=== PATIENT | male | born 1945 | race Caucasian/White ===

== ENCOUNTER 2018-12-24 13:15 | Emergency (ER) | payer OTHER ==
--- OUTSIDE RECORDS SUMMARY | 2018-12-24 13:17 | XMS REPORT ---
:1945 Author Organization eClinicalWorks Care Team Providers Name Role Phone Mosley, Na Provider Role Unavailable Allergies, Adverse Reactions, Alerts Substance Reaction Event Type N.K.D.A. Info Not Available Non Drug Allergy Problems Problem Type Condition Code Onset Dates Condition Status Assessment Allergic rhinitis J30.9 Active Assessment HTN (hypertension) I10 Active Problem Cervical radiculopathy M54.12 Active Problem BMI 33.0-33.9,adult Z68.33 Active Problem Lipid screening Z13.220 Active Problem HTN (hypertension) I10 Active Problem Allergic rhinitis J30.9 Active Problem Osteoarthritis of right knee, M17.11 Active unspecified osteoarthritis type Problem Obesity E66.9 Active Assessment Lipid screening Z13.220 Active Assessment Asymptomatic hypertensive urgency I16.0 Active Assessment Osteoarthritis of right knee, M17.11 Active unspecified osteoarthritis type Assessment BMI 33.0-33.9,adult Z68.33 Active Assessment Cervical radiculopathy M54.12 Active Medications Medication Code Code Instructions Start End Status Dosage System Date Date Celebrex [facility] 45717252934 100 MG Orally Dec 03, Mar 03, Active 1 capsule twice a day 2017 2017 with food Zyrtec Allergy ND 70755579439 10 MG Orally Active 1 tablet Once a day Metoprolol ND 65356432384 25 MG Orally Active 1 tablet Tartrate Twice a day with food Debrox [facility] 50755558093 6.5 % Otic Twice Active 5 drops a day into affected ear Amlodipine ND 01084630091 10 MG Orally Dec 03, Active 1 tablet Besylate Once a day 2017 Flonase ND 02743652237 50 MCG/ACT Active 2 spray in Nasally Once a each day nostril Losartan ND 84190406885 100-12.5 Active TAKE ONE Potassium-HCTZ TABLET BY MOUTH ONCE DAILY Results No Known Results Summary Purpose eClinicalWorks Submission
--- OUTSIDE RECORDS SUMMARY | 2018-12-24 13:17 | XMS REPORT ---
:1945 Author Organization e[employer]Works Care Team Providers Name Role Phone Nettie Mosley Provider Role Unavailable Allergies, Adverse Reactions, Alerts Substance Reaction Event Type N.K.D.A. Info Not Available Non Drug Allergy Problems Problem Type Condition Code Onset Dates Condition Status Problem Obesity E66.9 Active Problem HTN (hypertension) I10 Active Problem Allergic rhinitis J30.9 Active Assessment Allergic rhinitis J30.9 Active Assessment HTN (hypertension) I10 Active Medications Medication Code System Code Instructions Start Date End Date Status Dosage Debrox NDC 0 Active not defined Results No Known Results Summary Purpose eClinicalWorks Submission
--- NOTE | 2018-12-24 15:01 | ER ---
Nurse's Notes [facility] Name: Bladimir Michelle Age: 73 yrs Sex: Male : 1945 Arrival Date: 12/24/2018 Time: 13:20 Bed 16 Private MD: Diagnosis: Hypertensive heart qzthzso-[id number]-coyidydmn and poorly controlled Presentation: 12/24 13:23 Presenting complaint: Patient states: "I woke up this morning and noticed my legs felt ss a little swollen. My blood pressure has been high and I've been out of my medication for a couple weeks." Patient reports that he took one of his 's blood pressure medications yesterday and today to see if it would help. Transition of care: patient was not received from another setting of care. Onset of symptoms is unknown. Risk Assessment: Do you want to hurt yourself or someone else? Patient reports no desire to harm self or others. Initial Sepsis Screen: Does the patient meet any 2 criteria? No. Patient's initial sepsis screen is negative. Does the patient have a suspected source of infection? No. Patient's initial sepsis screen is negative. Care prior to arrival: None. 13:23 Method Of Arrival: Ambulatory ss 13:23 Acuity: MENDOZA 3 ss Historical: - Allergies: 13:26 No Known Allergies; ss - Home Meds: 13:26 None [Active]; ss - PMHx: 13:26 Hypertension; ss - PSHx: 13:26 Hernia repair; ss - Immunization history:: Adult Immunizations unknown. - Social history:: Smoking status: Patient/guardian denies using tobacco. - Ebola Screening: : Patient denies exposure to infectious person Patient denies travel to an Ebola-affected area in the 21 days before illness onset. Screenin:00 Abuse screen: Denies threats or abuse. Denies injuries from another. Nutritional ph screening: No deficits noted. Tuberculosis screening: No symptoms or risk factors identified. Fall Risk None identified. Assessment: 14:00 General: Appears in no apparent distress. comfortable, well groomed, Behavior is calm, ph cooperative, appropriate for age. Pain: Denies pain. Neuro: Level of Consciousness is awake, alert, obeys commands, Oriented to person, place, time, situation, Denies blurred vision dizziness, headache. Cardiovascular: Denies chest pain, lightheadedness, shortness of breath, Capillary refill < 3 seconds in bilateral fingers Patient's skin is warm and dry. Respiratory: Airway is patent Respiratory effort is even, unlabored. GI: No signs and/or symptoms were reported involving the gastrointestinal system. Derm: Skin is intact, is healthy with good turgor, Skin is pink, warm \\T\\ dry. Musculoskeletal: Circulation, motion, and sensation intact. Range of motion: intact in all extremities. 15:30 Reassessment: Patient appears in no apparent distress at this time. Patient and/or ph family updated on plan of care and expected duration. Pain level reassessed. Patient is alert, oriented x 3, equal unlabored respirations, skin warm/dry/pink. awaiting BP medication from pharmacy before d/c. Vital Signs: 13:26 BP 175 / 94; Pulse 76; Resp 19; Temp 97.0(TE); Pulse Ox 95% on R/A; Weight 122.47 kg; ss Height 6 ft. 1 in. (185.42 cm); Pain 0/10; 14:33 BP 156 / 82; Pulse 60; Resp 18; Pulse Ox 95% on R/A; ph 13:26 Body Mass Index 35.62 (122.47 kg, 185.42 cm) ss ED Course: 13:20 Patient arrived in ED. as 13:25 Triage completed. ss 13:26 Arm band placed on right wrist. ss 13:28 Monica Spears, RN is Primary Nurse. ph 13:38 William Jay MD is Attending Physician. kdr 14:59 Nettie Mosley MD is Referral Physician. kdr 15:00 Patient has correct armband on for positive identification. Bed in low position. Call ph light in reach. Pulse ox on. NIBP on. Door closed. Noise minimized. 16:00 No provider procedures requiring assistance completed. Patient did not have IV access ph during this emergency room visit. Administered Medications: 15:56 Drug: Losartan 50 mg Route: PO; ph 16:05 Follow up: Response: No adverse reaction; Medication administered at discharge. ph Outcome: 15:00 Discharge ordered by . kdr 16:07 Patient left the ED. ph 16:07 Discharged to home ambulatory. ph 16:07 Condition: good 16:07 Discharge instructions given to patient, Instructed on discharge instructions, follow up and referral plans. Demonstrated understanding of instructions, follow-up care. Signatures: William Jay MD MD kdr Martinez, Amelia as Smirch, Shelby, RN RN ss Monica Spears RN RN ph
--- NOTE | 2018-12-24 15:01 | EDPHYS ---
Physician Documentation [facility] Name: Bladimir Michelle Age: 73 yrs Sex: Male : 1945 Arrival Date: 12/24/2018 Time: 13:20 Bed 16 Private MD: ED Physician William Jay HPI: 12/24 18:53 This 73 yrs old Male presents to ER via Ambulatory with complaints of Blood kdr Pressure Problem. 18:53 The patient has been out of his HTN meds for a number of weeks. Onset: The kdr symptoms/episode began/occurred gradually. Severity of symptoms: At their worst the symptoms were mild in the emergency department the symptoms are unchanged. The patient has not recently seen a physician, Has been unable to see his doctor recently to get his meds refilled. Historical: - Allergies: 13:26 No Known Allergies; ss - Home Meds: 13:26 None [Active]; ss - PMHx: 13:26 Hypertension; ss - PSHx: 13:26 Hernia repair; ss - Immunization history:: Adult Immunizations unknown. - Social history:: Smoking status: Patient/guardian denies using tobacco. - Ebola Screening: : Patient denies exposure to infectious person Patient denies travel to an Ebola-affected area in the 21 days before illness onset. ROS: 18:53 Constitutional: Negative for fever, chills, and weight loss, Eyes: Negative for injury, kdr pain, redness, and discharge, ENT: Negative for injury, pain, and discharge, Neck: Negative for injury, pain, and swelling, Cardiovascular: Negative for chest pain, palpitations, and edema, Respiratory: Negative for shortness of breath, cough, wheezing, and pleuritic chest pain, Abdomen/GI: Negative for abdominal pain, nausea, vomiting, diarrhea, and constipation, Back: Negative for injury and pain, : Negative for injury, bleeding, discharge, and swelling, Skin: Negative for injury, rash, and discoloration, Neuro: Negative for headache, weakness, numbness, tingling, and seizure activity. Psych: Negative for depression, anxiety, suicide ideation, homicidal ideation, and hallucinations, Allergy/Immunology: Negative for hives, rash, and allergies, Endocrine: Negative for neck swelling, polydipsia, polyuria, polyphagia, and marked weight changes, Hematologic/Lymphatic: Negative for swollen nodes, abnormal bleeding, and unusual bruising. 18:53 MS/extremity: Positive for swelling, 2+ pedal edema in bilateral lower extremity. Exam: 18:53 Constitutional: This is a well developed, well nourished patient who is awake, alert, kdr and in no acute distress. Head/Face: Normocephalic, atraumatic. Eyes: Pupils equal round and reactive to light, extra-ocular motions intact. Lids and lashes normal. Conjunctiva and sclera are non-icteric and not injected. Cornea within normal limits. Periorbital areas with no swelling, redness, or edema. Neck: Trachea midline, no thyromegaly or masses palpated, and no cervical lymphadenopathy. Supple, full range of motion without nuchal rigidity, or vertebral point tenderness. No Meningismus. Chest/axilla: Normal chest wall appearance and motion. Nontender with no deformity. No lesions are appreciated. Cardiovascular: Regular rate and rhythm with a normal S1 and S2. No gallops, murmurs, or rubs. Normal PMI, no JVD. No pulse deficits. Respiratory: Lungs have equal breath sounds bilaterally, clear to auscultation and percussion. No rales, rhonchi or wheezes noted. No increased work of breathing, no retractions or nasal flaring. Abdomen/GI: Soft, non-tender, with normal bowel sounds. No distension or tympany. No guarding or rebound. No evidence of tenderness throughout. Back: No spinal tenderness. No costovertebral tenderness. Full range of motion. Skin: Warm, dry with normal turgor. Normal color with no rashes, no lesions, and no evidence of cellulitis. 2+ pitting edema bilaterally MS/ Extremity: Pulses equal, no cyanosis. Neurovascular intact. Full, normal range of motion. Neuro: Awake and alert, GCS 15, oriented to person, place, time, and situation. Cranial nerves II-XII grossly intact. Motor strength 5/5 in all extremities. Sensory grossly intact. Cerebellar exam normal. Normal gait. Psych: Awake, alert, with orientation to person, place and time. Behavior, mood, and affect are within normal limits. Vital Signs: 13:26 BP 175 / 94; Pulse 76; Resp 19; Temp 97.0(TE); Pulse Ox 95% on R/A; Weight 122.47 kg; ss Height 6 ft. 1 in. (185.42 cm); Pain 0/10; 14:33 BP 156 / 82; Pulse 60; Resp 18; Pulse Ox 95% on R/A; ph 13:26 Body Mass Index 35.62 (122.47 kg, 185.42 cm) MDM: 15:00 Patient medically screened. kdr 18:53 Data reviewed: vital signs, nurses notes, lab test result(s). Counseling: I had a kdr detailed discussion with the patient and/or guardian regarding: the historical points, exam findings, and any diagnostic results supporting the discharge/admit diagnosis, lab results, radiology results, the need for outpatient follow up. Physician consultation: Nettie Mosley MD regarding consult, patient's condition, need to evaluate the patient as soon as possible, outpatient follow-up, and will see patient in office, immediately. Administered Medications: 15:56 Drug: Losartan 50 mg Route: PO; ph 16:05 Follow up: Response: No adverse reaction; Medication administered at discharge. ph Disposition: 12/24/18 15:00 Discharged to Home. Impression: Hypertensive heart disease - non-compliant and poorly controlled. - Condition is Stable. - Discharge Instructions: Hypertension, [id number]. - Medication Reconciliation Form, Thank You Letter form. - Follow up: Nettie Mosley MD; When: Tomorrow; Reason: If symptoms return, Further diagnostic work-up, Recheck today's complaints, Continuance of care, Re-evaluation by your physician. - Problem is an ongoing problem. - Symptoms are unchanged. - Notes: Follow-up in Dr. Mosley's office tomorrow. They will re-fill your medications at that time Signatures: William Jay MD MD [facility] Brenda Delgado RN RN Monica Spears RN RN ph Corrections: (The following items were deleted from the chart) 16:07 15:00 12/24/2018 15:00 Discharged to Home. Impression: Hypertensive heart disease - ph non-compliant and poorly controlled. Condition is Stable. Forms are Medication Reconciliation Form, Thank You Letter, Antibiotic Education, Prescription Opioid Use. Follow up: Nettie Mosley; When: Tomorrow; Reason: If symptoms return, Further diagnostic work-up, Recheck today's complaints, Continuance of care, Re-evaluation by your physician. Problem is an ongoing problem. Symptoms are unchanged. kdr
[2018-12-24] MEDS ORDERED: LOSARTAN POTASSIUM 50 MG TABLET PO ONE (16:00)
[2018-12-24 16:40] VITALS: TEMP 97; O2SAT 95
[2018-12-24 16:41] VITALS: BP 156/82
== END 2018-12-24 16:07 | disposition home or self-care (01) ==
LOC: ER 13:15
DX: I11.9 Hypertensive heart disease without heart failure (principal); I10 Essential (primary) hypertension; Z91.19 Patient's noncompliance with other medical treatment and regimen
CPT/HCPCS: 99283

== ENCOUNTER 2019-01-06 15:12 | Emergency (ER) | payer OTHER ==
[2019-01-06] MEDS ORDERED: NA CHLORIDE 0.9% 250 ML ONE (15:47)
[2019-01-06] MEDS ORDERED: VANCOMYCIN 1 GM/VIAL ONE (15:47)
[2019-01-06] MEDS ORDERED: TETANUS & DIPHTHERIA TOX,ADULT 0.5 ML VIAL ONE (15:48)
[2019-01-06] MEDS ORDERED: PIPER/TAZO/NS 3.375gm 3.375 GM/100 ML BAG ONE (15:48)
[2019-01-06] MEDS ORDERED: NA CHLORIDE 0.9% 1,000 ML ONE (15:48)
[2019-01-06 16:15] LABS: Absolute Lymphocytes (CBC) 1.6 K/uL (0.7-4.9); Basophils % 2.9 % (0-1.3); Hematocrit 42.5 % (39.6-49.0); MPV 9.1 fL (7.6-11.3); RBC Red Blood Cell Count 4.97 M/uL (4.33-5.43)
--- NOTE | 2019-01-06 16:18 | RAD REPORT ---
EXAM DESCRIPTION: US - UPPER EXTREMITY VENOUS UNILATE - 01/06/2019 4:05 pm CLINICAL HISTORY: Pain;Swelling Arm swelling and edema. COMPARISON: <Comparisons> FINDINGS: Right upper extremity venous system was interrogated with Doppler technique. Normal flow, compressibility and augmentation was noted. There is no DVT present. IMPRESSION: No evidence of right upper extremity deep venous thrombosis.
[2019-01-06 16:36] LABS: ALT/SGPT 15 U/L (12-78); AST/SGOT 12 U/L (15-37); Albumin 3.2 g/dL (3.4-5.0); Alkaline Phosphatase 94 U/L (45-117); BUN Blood Urea Nitrogen 14 mg/dL (7-18); Bicarbonate 29 mmol/L (21-32); Bilirubin Direct 0.1 mg/dL (0-0.2); Bilirubin Total 0.3 mg/dL (0.2-1.0); CKMB Creatine Kinase MB < 1.0 ng/mL (0.3-3.6); Creatine Phosphokinase 67 U/L (39-308); Glucose Level 94 mg/dL (74-106); Lipase 66 U/L (73-393); Potassium 4.3 mmol/L (3.5-5.1); Protein, Total 7.1 g/dL (6.4-8.2); Sodium Level 141 mmol/L (136-145); Troponin (Emerg Dept Use Only) < 0.02 ng/mL (0.0-0.045)
--- NOTE | 2019-01-06 16:43 | RAD REPORT ---
EXAM DESCRIPTION: RAD - Elbow Right 3 View - 01/06/2019 4:20 pm CLINICAL HISTORY: Pain;Swelling COMPARISON: No comparisons FINDINGS: Moderate soft tissue swelling is seen about the elbow. No acute fracture or dislocation is definitively seen.
[2019-01-06 16:44] LABS: Protime INR 1.08
--- NOTE | 2019-01-06 16:44 | RAD REPORT ---
EXAM DESCRIPTION: RAD - Chest Single View - 01/06/2019 4:20 pm CLINICAL HISTORY: wound infection Chest pain. COMPARISON: CHEST SINGLE VIEW dated 08/17/2014; CHEST PA AND LAT 2 VIEW dated 04/05/2011 FINDINGS: Portable technique limits examination quality. The lungs are grossly clear. The heart is normal in size. Tortuous thoracic aorta. IMPRESSION: No acute intrathoracic process suspected.
[2019-01-06 17:12] LABS: Urine Bacteria <20 /HPF (NONE SEEN); Urine Culture Reflex Order NOT NEEDED; Urine Mucus 1+ /HPF (NONE SEEN); Urine RBC <5 /HPF (NONE SEEN)
--- NOTE | 2019-01-06 18:33 | EDPHYS ---
Physician Documentation [facility] Name: Bladimir Michelle Age: 73 yrs Sex: Male : 1945 Arrival Date: 01/06/2019 Time: 15:14 Bed 14 Private MD: Nettie Mosley ED Physician Suleman Vasquez HPI: 01/06 15:37 This 73 yrs old Male presents to ER via Ambulatory with complaints of Elbow snw swelling. 15:37 The patient or guardian complains of injury, swelling, tenderness. The complaints snw affect the right elbow. Context: The problem was sustained outdoors, resulted from a fall, while walking, pt fell one week ago in his driveway and scraped his right elbow. Onset: The symptoms/episode began/occurred suddenly, 1 week(s) ago, and became persistent. Treatment prior to arrival includes: no previous treatment. Modifying factors: The symptoms are alleviated by nothing. Associated signs and symptoms: Pertinent positives: pain, swelling, drainage. Severity of symptoms: At their worst the symptoms were moderate. The patient has not experienced similar symptoms in the past. It is unknown whether or not the patient has recently seen a physician, PCP is Dr. Mosley. Historical: - Allergies: 15:15 No Known Drug Allergies; sv - PMHx: 15:15 Hypertension; sv - PSHx: 15:15 Hernia repair; sv - Immunization history:: Adult Immunizations unknown. - Social history:: Smoking status: unknown. - Ebola Screening: : No symptoms or risks identified at this time. ROS: 15:27 Constitutional: Negative for fever, chills, and weight loss, Eyes: Negative for injury, snw pain, redness, and discharge, ENT: Negative for injury, pain, and discharge, Neck: Negative for injury, pain, and swelling, Cardiovascular: Negative for chest pain, palpitations, and edema, Respiratory: Negative for shortness of breath, cough, wheezing, and pleuritic chest pain, Abdomen/GI: Negative for abdominal pain, nausea, vomiting, diarrhea, and constipation, Back: Negative for injury and pain, : Negative for injury, bleeding, discharge, and swelling, Skin: Negative for injury, rash, and discoloration, Neuro: Negative for headache, weakness, numbness, tingling, and seizure. 15:27 MS/extremity: Positive for injury or acute deformity, contusion, pain, swelling, of the right elbow. 15:27 Skin: Positive for abrasion(s), of the right elbow. Exam: 15:27 Constitutional: This is a well developed, well nourished patient who is awake, alert, snw and in no acute distress. Head/Face: Normocephalic, atraumatic. Eyes: Pupils equal round and reactive to light, extra-ocular motions intact. Lids and lashes normal. Conjunctiva and sclera are non-icteric and not injected. Cornea within normal limits. Periorbital areas with no swelling, redness, or edema. ENT: Nares patent. No nasal discharge, no septal abnormalities noted. Tympanic membranes are normal and external auditory canals are clear. Oropharynx with no redness, swelling, or masses, exudates, or evidence of obstruction, uvula midline. Mucous membranes moist. Neck: Trachea midline, no thyromegaly or masses palpated, and no cervical lymphadenopathy. Supple, full range of motion without nuchal rigidity, or vertebral point tenderness. No Meningismus. Chest/axilla: Normal chest wall appearance and motion. Nontender with no deformity. No lesions are appreciated. Cardiovascular: Regular rate and rhythm with a normal S1 and S2. No gallops, murmurs, or rubs. Normal PMI, no JVD. No pulse deficits. Respiratory: Lungs have equal breath sounds bilaterally, clear to auscultation and percussion. No rales, rhonchi or wheezes noted. No increased work of breathing, no retractions or nasal flaring. Abdomen/GI: Soft, non-tender, with normal bowel sounds. No distension or tympany. No guarding or rebound. No evidence of tenderness throughout. Back: No spinal tenderness. No costovertebral tenderness. Full range of motion. Neuro: Awake and alert, GCS 15, oriented to person, place, time, and situation. Cranial nerves II-XII grossly intact. Motor strength 5/5 in all extremities. Sensory grossly intact. Cerebellar exam normal. Normal gait. Psych: Awake, alert, with orientation to person, place and time. Behavior, mood, and affect are within normal limits. 15:27 Skin: Appearance: normal except for affected area, injury, abrasion(s), moderate sized abrasion noted, of the right elbow, contusion(s), draining exudate with mild surrounding erythema, + full range of motion. Vital Signs: 15:15 BP 179 / 86; Pulse 59; Resp 20; Temp 98.2; Pulse Ox 97% ; Weight 122.92 kg; Height 6 sv ft. 1 in. (185.42 cm); 16:00 BP 147 / 58; Pulse 52; Resp 15; Pulse Ox 97% on R/A; rv 17:00 BP 142 / 72; Pulse 50; Resp 16; Pulse Ox 97% on R/A; rv 18:00 BP 170 / 89; Pulse 58; Resp 16; Pulse Ox 98% on R/A; rv 18:30 BP 173 / 76; Pulse 58; Resp 16; Pulse Ox 98% on R/A; rv 18:45 BP 173 / 80; Pulse 78; Resp 15; Pulse Ox 98% on R/A; rv 19:30 BP 160 / 75; Pulse 75; Resp 17; Temp 98.2; Pulse Ox 99% ; rr5 15:15 Body Mass Index 35.75 (122.92 kg, 185.42 cm) sv MDM: 15:18 Patient medically screened. snw 18:36 Data reviewed: vital signs, nurses notes. Data interpreted: Pulse oximetry: on room air snw is 97 %. Interpretation: normal. Counseling: I had a detailed discussion with the patient and/or guardian regarding: the historical points, exam findings, and any diagnostic results supporting the discharge/admit diagnosis, lab results, radiology results, the need for outpatient follow up, for definitive care, to return to the emergency department if symptoms worsen or persist or if there are any questions or concerns that arise at home. Special discussion: Based on the history and exam findings, there is no indication for further emergent testing or inpatient evaluation. I discussed with the patient/guardian the need to see the primary care provider for further evaluation of the symptoms. 01/06 15:26 Order name: Sed Rate; Complete Time: 17:11 snw 01/06 15:26 Order name: Wound Culture snw 01/06 15:26 Order name: Basic Metabolic Panel; Complete Time: 16:46 snw 01/06 15:26 Order name: Blood Culture Adult (2) snw 01/06 15:26 Order name: CBC with Diff; Complete Time: 17:11 snw 01/06 15:26 Order name: Ckmb; Complete Time: 16:46 snw 01/06 15:26 Order name: CPK; Complete Time: 16:46 snw 01/06 15:26 Order name: Lactate; Complete Time: 16:34 snw 01/06 15:26 Order name: LFT's; Complete Time: 16:46 snw 01/06 15:26 Order name: Lipase; Complete Time: 16:46 snw 01/06 15:26 Order name: Procalcitonin; Complete Time: 17:11 snw 01/06 15:26 Order name: Protime (+inr); Complete Time: 17:11 snw 01/06 15:26 Order name: Ptt, Activated; Complete Time: 17:11 snw 01/06 15:26 Order name: Troponin (emerg Dept Use Only); Complete Time: 16:46 snw 01/06 15:26 Order name: Urine Microscopic Only; Complete Time: 17:14 snw 01/06 15:26 Order name: Chest Single View XRAY; Complete Time: 16:50 snw 01/06 15:26 Order name: Accucheck; Complete Time: 15:56 snw 01/06 15:26 Order name: Cardiac monitoring; Complete Time: 15:56 snw 01/06 15:26 Order name: EKG - Nurse/Tech; Complete Time: 17:24 snw 01/06 15:26 Order name: IV Saline Lock - Large Bore; Complete Time: 15:55 snw 01/06 15:26 Order name: Elbow Right 3 View XRAY; Complete Time: 16:50 snw 01/06 15:37 Order name: UPPER EXTREMITY VENOUS UNILATE; Complete Time: 16:34 EDMS 01/06 16:56 Order name: Urine Dipstick--Ancillary (enter results) bd 01/06 17:44 Order name: EKG Electrocardiogram EDMS 01/06 15:26 Order name: Labs collected and sent; Complete Time: 15:55 snw 01/06 15:26 Order name: O2 Per Protocol; Complete Time: 15:55 snw 01/06 15:26 Order name: O2 Sat Monitoring; Complete Time: 15:56 snw 01/06 15:40 Order name: Wound Care; Complete Time: 15:55 snw Administered Medications: 16:25 Drug: Hibiclens 4 % 1 application Route: Topical; Site: affected area; rv 16:35 Drug: Zosyn 3.375 grams Route: IVPB; Infused Over: 60 mins; Site: left forearm; rv 17:31 Follow up: IV Status: Completed infusion rv 16:35 Drug: NS 0.9% 1000 ml Route: IV; Rate: 75 ml/hr; Site: left forearm; rv 19:29 Follow up: Response: No adverse reaction; IV Status: Order to discontinue infusion; IV rr5 Intake: 150ml 16:40 Drug: Tetanus-Diphtheria Toxoid Adult 0.5 ml {Artificial Glass Eye Maker: [employer]. Exp: rv 08/26/2020. Lot #: [id number]. } Route: IM; Site: left deltoid; 17:31 Follow up: Response: No adverse reaction rv 17:31 Drug: vancoMYCIN 1 grams Route: IVPB; Infused Over: 2 hrs; Site: left forearm; rv 19:30 Follow up: Response: No adverse reaction; IV Status: Completed infusion; IV Intake: rr5 250ml Disposition: 01/06/19 18:33 Discharged to Home. Impression: Cellulitis of right upper limb. - Condition is Stable. - Discharge Instructions: Cellulitis, Adult, Rehydration, Elderly. - Prescriptions for Doxycycline Hyclate 100 mg Oral Tablet - take 1 tablet by ORAL route every 12 hours; 20 tablet. Ultram 50 mg Oral Tablet - take 1 tablet by ORAL route every 8 hours As needed; 12 tablet. - Medication Reconciliation Form, Thank You Letter, Antibiotic Education, Prescription Opioid Use form. - Follow up: Nettie Mosley MD; When: 2 - 3 days; Reason: Recheck today's complaints, Continuance of care, Re-evaluation by your physician. Follow up: Emergency Department; When: As needed; Reason: Fever > 102 F, Worsening of condition. Addendum: 01/08/2019 07:27 Co-signature as Attending Physician, Suleman Vasquez MD. g s Signatures: Dispatcher [employer] Augusta Alvarado RN RN Leela Ibrahim, SHOTBLAST EQUIPMENT OPERATOR-C SHOTBLAST EQUIPMENT OPERATOR-Csnw Suleman Vasquez MD MD gs Vicente, Ronaldo, RN RN Collins Lyles RN RN rr5 Corrections: (The following items were deleted from the chart) 01/06 15:37 15:29 Extremity Venous Uni [id number] ordered. EDMS EDMS 15:37 15:27 Skin: Appearance: normal except for affected area, injury, abrasion(s), moderate snw sized abrasion noted, of the right elbow, contusion(s), draining exudate with mild surrounding erythema, snw 19:33 18:33 01/06/2019 18:33 Discharged to Home. Impression: Cellulitis of right upper limb. rr5 Condition is Stable. Forms are Medication Reconciliation Form, Thank You Letter, Antibiotic Education, Prescription Opioid Use. Follow up: Nettie Mosley; When: 2 - 3 days; Reason: Recheck today's complaints, Continuance of care, Re-evaluation by your physician. Follow up: Emergency Department; When: As needed; Reason: Fever > 102 F, Worsening of condition. snw
--- NOTE | 2019-01-06 18:33 | ER ---
Nurse's Notes [facility] Name: Bladimir Michelle Age: 73 yrs Sex: Male : 1945 Arrival Date: 01/06/2019 Time: 15:14 Bed 14 Private MD: Nettie Mosley Diagnosis: Cellulitis of right upper limb Presentation: 01/06 15:14 Presenting complaint: Patient states: right elbow swelling and redness has increased sv since a fall a couple of days ago. Transition of care: patient was not received from another setting of care. Risk Assessment: Do you want to hurt yourself or someone else? Patient reports no desire to harm self or others. 15:14 Method Of Arrival: Ambulatory sv 15:14 Acuity: MENDOZA 3 sv 15:16 Onset of symptoms was December 2018. Initial Sepsis Screen: Does the patient meet any sv 2 criteria? No. Patient's initial sepsis screen is negative. Does the patient have a suspected source of infection? Yes: Skin breakdown/wound. Care prior to arrival: None. Triage Assessment: 15:17 General: Appears in no apparent distress. comfortable, Behavior is calm, cooperative, sv appropriate for age. Pain: Complains of pain in right elbow. Neuro: Level of Consciousness is awake, alert, obeys commands, Gait is steady. Respiratory: Respiratory effort is even, unlabored, Respiratory pattern is regular, symmetrical. Derm: Skin is pink, warm \T\ dry. Historical: - Allergies: 15:15 No Known Drug Allergies; sv - PMHx: 15:15 Hypertension; sv - PSHx: 15:15 Hernia repair; sv - Immunization history:: Adult Immunizations unknown. - Social history:: Smoking status: unknown. - Ebola Screening: : No symptoms or risks identified at this time. Screenin:53 Abuse screen: Denies threats or abuse. Denies injuries from another. Nutritional rv screening: No deficits noted. Tuberculosis screening: No symptoms or risk factors identified. Fall Risk None identified. Assessment: 15:54 General: Appears in no apparent distress. comfortable, Behavior is calm, cooperative. rv Pain: Denies pain. Neuro: Level of Consciousness is awake, alert, obeys commands, Oriented to person, place, time, situation. Cardiovascular: Patient's skin is warm and dry. Respiratory: Airway is patent. GI: No signs and/or symptoms were reported involving the gastrointestinal system. : No signs and/or symptoms were reported regarding the genitourinary system. EENT: No signs and/or symptoms were reported regarding the EENT system. Derm: Wound noted right elbow Wound is pus draining, with swelling. Musculoskeletal: Swelling present in right arm and right elbow. 18:46 Reassessment: Patient appears in no apparent distress at this time. No changes from rv previously documented assessment. patient is alert, awake and ambulatory. denies any pain at this moment. updated on results of diagnostics. Leela TRACK LAYING EQUIPMENT OPERATOR talked to the patient regarding plan of care. patient agreed. preparing for discharge after IV antibiotic infusion. updated on length of wait. 19:30 Reassessment: Patient appears in no apparent distress at this time. Patient is alert, rr5 oriented x 3, equal unlabored respirations, skin warm/dry/pink. vancomycin infusion consumed and terminated.discharge instruction given and explained without complaints made. verbalized understanding. Patient states feeling better. Patient states symptoms have improved. Vital Signs: 15:15 BP 179 / 86; Pulse 59; Resp 20; Temp 98.2; Pulse Ox 97% ; Weight 122.92 kg; Height 6 sv ft. 1 in. (185.42 cm); 16:00 BP 147 / 58; Pulse 52; Resp 15; Pulse Ox 97% on R/A; rv 17:00 BP 142 / 72; Pulse 50; Resp 16; Pulse Ox 97% on R/A; rv 18:00 BP 170 / 89; Pulse 58; Resp 16; Pulse Ox 98% on R/A; rv 18:30 BP 173 / 76; Pulse 58; Resp 16; Pulse Ox 98% on R/A; rv 18:45 BP 173 / 80; Pulse 78; Resp 15; Pulse Ox 98% on R/A; rv 19:30 BP 160 / 75; Pulse 75; Resp 17; Temp 98.2; Pulse Ox 99% ; rr5 15:15 Body Mass Index 35.75 (122.92 kg, 185.42 cm) sv ED Course: 15:14 Patient arrived in ED. mr 15:15 Nettie Mosley MD is Private Physician. mr 15:15 Triage completed. sv 15:15 [facility] Caban [facility]C [facility] snw 15:15 Suleman Vasquez MD is Attending Physician. snw 15:15 Arm band placed on. sv 15:27 Gordon Medley RN is Primary Nurse. rv 15:35 Inserted saline lock: 20 gauge in left forearm, using aseptic technique. Blood rv collected. 15:35 Initial lab(s) drawn, by me, sent to lab. First set of blood cultures drawn by me. rv 15:53 Patient has correct armband on for positive identification. Placed in gown. Bed in low rv position. Call light in reach. Side rails up X 1. Pulse ox on. NIBP on. 16:06 UPPER EXTREMITY VENOUS UNILATE In Process Unspecified. EDMS 16:22 Chest Single View XRAY In Process Unspecified. EDMS 16:22 Elbow Right 3 View XRAY In Process Unspecified. EDMS 16:34 Second set of blood cultures drawn by me. rv 17:05 EKG done, by medtronics technician. reviewed by Leela FOSTER. 3 18:32 Nettie Mosley MD is Referral Physician. snw 19:32 No provider procedures requiring assistance completed. IV discontinued, intact, rr5 bleeding controlled, No redness/swelling at site. Pressure dressing applied. Administered Medications: 16:25 Drug: Hibiclens 4 % 1 application Route: Topical; Site: affected area; rv 16:35 Drug: Zosyn 3.375 grams Route: IVPB; Infused Over: 60 mins; Site: left forearm; rv 17:31 Follow up: IV Status: Completed infusion rv 16:35 Drug: NS 0.9% 1000 ml Route: IV; Rate: 75 ml/hr; Site: left forearm; rv 19:29 Follow up: Response: No adverse reaction; IV Status: Order to discontinue infusion; IV rr5 Intake: 150ml 16:40 Drug: Tetanus-Diphtheria Toxoid Adult 0.5 ml {Manager Behavioral: [employer]. Exp: rv 08/26/2020. Lot #: [id number]. } Route: IM; Site: left deltoid; 17:31 Follow up: Response: No adverse reaction rv 17:31 Drug: vancoMYCIN 1 grams Route: IVPB; Infused Over: 2 hrs; Site: left forearm; rv 19:30 Follow up: Response: No adverse reaction; IV Status: Completed infusion; IV Intake: rr5 250ml Intake: 19:29 IV: 150ml; Total: 150ml. rr5 19:30 IV: 250ml; Total: 400ml. rr5 Outcome: 18:33 Discharge ordered by . haja 19:32 Discharged to home ambulatory. rr5 19:32 Condition: stable 19:32 Discharge instructions given to patient, Instructed on discharge instructions, follow up and referral plans. medication usage, Demonstrated understanding of instructions, follow-up care, medications, Prescriptions given X 2. 19:33 Patient left the ED. rr5 Signatures: Dispatcher [employer] EDAugusta Horne, RN RN sv Leela Caban, COMMISSARY HELPER-C COMMISSARY HELPER-Csnw Le Bravo, Yareli 3 Gordon Medley, RN RN Collins Girard RN RN rr5 Corrections: (The following items were deleted from the chart) 15:17 15:14 Presenting complaint: Patient states: right elbow swelling and redness. sv sv 15:18 15:15 Pulse 59bpm; Resp 20bpm; Pulse Ox 97%; Temp 98.2F; 122.92 kg; Height 6 ft. 1 in.; sv BMI: 35.7; sv
[2019-01-06 19:40] VITALS: TEMP 98.2
[2019-01-06 19:48] VITALS: BP 160/75; O2SAT 99
[2019-01-06 21:51] LABS: Urine Blood TRACE (NEG); Urine Glucose NEGATIVE (NEG); Urine Protein NEGATIVE (NEG)
--- NOTE | 2019-01-07 09:24 | EKG ---
Test Date: 2019-01-06 Test Time: 16:52:26 Administrator Of Home Health: MICHAEL MEASUREMENT RESULTS: Intervals: Rate: 56 RI: 174 QRSD: 110 QT: 444 QTc: 428 [place]: P: 0 RI: 174 QRS: -33 T: 38 INTERPRETIVE STATEMENTS: Sinus bradycardia Left axis deviation Voltage criteria for left ventricular hypertrophy Cannot rule out Septal infarct, age undetermined Abnormal ECG Compared to ECG 08/16/2016 12:59:38 No significant changes Electronically Signed On 01-07-19 09:23:30 CDT by Vamshi Francis
== END 2019-01-06 19:33 | disposition home or self-care (01) ==
LOC: ER 15:12
DX: L03.113 Cellulitis of right upper limb (principal)
CPT/HCPCS: 96365; 96367; 93005; 87040 ×2; 87070; 85025; 80048; 36415; 82550; 87205; 85610; 80076; 83605; 85730; 85652; 84484; 82553; 83690; 84145; 71045; 73080; 93971; 90471; 90714; 99284; 96366; J2543; J7030; 81003; 81015

== ENCOUNTER 2020-09-16 06:38 | Emergency (ER) | payer OTHER ==
--- OUTSIDE RECORDS SUMMARY | 2020-09-16 06:41 | XMS REPORT | Continuity of Care Document ---
:1945 Author Organization [facility] t Address [address] [place] [address] Care Team Providers Name Role Phone Unavailable Unavailable Unavailable Problems This patient has no known problems. Allergies, Adverse Reactions, Alerts This patient has no known allergies or adverse reactions. Medications Ordered Filled Start Stop Current Ordering Indication Dosage Frequency Signature Comments Components Source Medication Medication Date Date Medication? Clinician (SIG) Name Name Metoprolol Metoprolol Yes Na Mosley [address] [facility] Tartrate Tartrate with food Shruti k[facility] Losartan Losartan Yes Na Mosley take one [facility] Potassium-H Potassium-H tablet by [facility] CTZ mouth once [facility] daily l [facility] Flonase Flonase Yes Na Mosley [address] [facility] nostril [facility] Debrox Debrox Yes Na Mosley 5 drops [facility] affected [facility] Zyrtec Zyrtec Yes Na Mosley [address] [facility] Allergy Allergy [facility] Amlodipine Amlodipine Yes Na Mosley [address] [facility] Besylate Besylate [facility] Losartan Losartan Yes Na Msoley TAKE [address] Potassium-H Potassium-H TABLET BY [facility] CTZ MOUTH ONCE [facility] DAILY IN l [facility] MORNING ent Clin[facility] Procedures This patient has no known procedures. Encounters Start End Encounter Admission Attending Care Care Encounter Source Date/Time Date/Time Type Type Clinicians Facility Department ID 2020-01-14 2020-01-14 Outpatient [facility] [id number] [facility] 2020-01-12 2020-01-12 Outpatient [facility] [id number] [facility] 2020-01-01 2020-01-01 [facility] [id number] [facility] 13:20:00 13:20:00 [place] [employer] [facility] [employer] [facility] 2019-10-01 2019-10-01 [facility] [id number] [facility] 22:43:00 22:43:00 [place] [employer] [facility] 2019-07-16 2019-07-16 [facility] [id number] [facility] 08:56:00 08:56:00 t [employer] [facility] 2019-01-06 2019-01-06 [facility] [id number] [facility] 14:00:00 14:00:00 [place] [employer] [facility] 2018-12-24 2018-12-24 [facility] [id number] [facility] 12:56:00 12:56:00 t [employer] [facility] 2017-12-03 2017-12-03 [facility] [id number] [facility] 09:00:00 09:00:00 [place] [employer] [facility] 2017-09-03 2017-09-03 [facility] [id number] [facility] 11:15:00 11:15:00 t [employer] [facility] Results This patient has no known results.
[2020-09-16 09:03] LABS: Absolute Lymphocytes (CBC) 1.3 K/uL (0.7-4.9); Basophils % 0.2 % (0-1.3); Hematocrit 41.7 % (39.6-49.0); Lymphocytes % 23.6 % (15.3-44.8); MPV 8.5 fL (7.6-11.3); RBC Red Blood Cell Count 4.79 M/uL (4.33-5.43)
[2020-09-16] MEDS ORDERED: FUROSEMIDE 40 MG/4 ML VIAL ONE (09:06)
[2020-09-16 09:18] LABS: Protime INR 1.01
[2020-09-16 09:27] LABS: ALT/SGPT 17 U/L (12-78); AST/SGOT 9 U/L (15-37); Alkaline Phosphatase 86 U/L (45-117); BUN Blood Urea Nitrogen 13 mg/dL (7-18); Bicarbonate 30 mmol/L (21-32); Bilirubin Direct < 0.1 mg/dL (0-0.2); Bilirubin Total 0.3 mg/dL (0.2-1.0); Glucose Level 110 mg/dL (74-106); Magnesium 2.1 mg/dL (1.8-2.4); NT PRO-BNP 241 pg/mL (<125); Potassium 4.3 mmol/L (3.5-5.1); Protein, Total 6.5 g/dL (6.4-8.2); Sodium Level 141 mmol/L (136-145); Troponin (Emerg Dept Use Only) < 0.02 ng/mL (0.0-0.045)
--- NOTE | 2020-09-16 10:17 | RAD REPORT ---
EXAM DESCRIPTION: RAD - Chest Single View - 09/16/2020 8:36 am CLINICAL HISTORY: SOB COMPARISON: December 2018 TECHNIQUE: AP portable chest image was obtained 09/16/2020 8:36 am . FINDINGS: No peripheral mass or consolidation. Under penetrated portable technique and body habitus accentuate chest findings. Pericardial fat pad present on the left. Adjusting for inspiration, positi oning and technique differences, lung parenchyma not clearly different. Cardiac silhouette is enlarge d believed to be upper normal size accentuated by exam limitations. No abnormal vascular engorgement. No measurable pleural effusion and no pneumothorax. No acute bony abnormality seen. No acute aortic findings suspected. IMPRESSION: Exam is limited as detailed. However, no acute cardiopulmonary finding seen.
--- NOTE | 2020-09-16 11:42 | ER ---
Nurse's Notes [facility] Name: Bladimir Michelle Age: 75 yrs Sex: Male : 1945 Arrival Date: 09/16/2020 Time: 06:41 Bed 25 Private MD: Diagnosis: Shortness of breath Presentation: 09/16 07:12 Chief complaint: Patient states: "I am feeling short of breath. no pain.". Coronavirus jd3 screen: shortness of breath, Client presents with at least one sign or symptom that may indicate coronavirus-19. Standard/surgical mask placed on the client. Provider contacted for isolation considerations. Ebola Screen: Patient negative for fever greater than or equal to 101.5 degrees Fahrenheit, and additional compatible Ebola Virus Disease symptoms. Initial Sepsis Screen: Does the patient meet any 2 criteria? No. Patient's initial sepsis screen is negative. Does the patient have a suspected source of infection? No. Patient's initial sepsis screen is negative. Risk Assessment: Do you want to hurt yourself or someone else? Patient reports no desire to harm self or others. Onset of symptoms was September 15, 2020. 07:12 Method Of Arrival: Ambulatory jd3 07:12 Acuity: MENDOZA 3 jd3 Historical: - Allergies: 07:13 No Known Allergies; jd3 - Home Meds: 07:13 BP med [Active]; jd3 - PMHx: 07:13 Hypertension; jd3 - PSHx: 07:13 Hernia repair; jd3 - Immunization history:: Adult Immunizations up to date. - Social history:: Smoking status: Patient denies any tobacco usage or history of. Screenin:00 Abuse screen: Denies threats or abuse. Denies injuries from another. Nutritional ph screening: No deficits noted. Tuberculosis screening: No symptoms or risk factors identified. Fall Risk None identified. Assessment: 08:30 General: Appears in no apparent distress. comfortable, Behavior is calm, cooperative, ph appropriate for age, Denies fever, feeling ill. Pain: Denies pain. Neuro: Level of Consciousness is awake, alert, obeys commands, Oriented to person, place, time, situation. Cardiovascular: Reports shortness of breath, Denies chest pain, palpitations, Capillary refill < 3 seconds in bilateral fingers Patient's skin is warm and dry. Rhythm is sinus bradycardia. Respiratory: Reports shortness of breath at rest Airway is patent Respiratory effort is even, unlabored, Respiratory pattern is regular, symmetrical, Breath sounds are clear bilaterally. Derm: Skin is intact, is healthy with good turgor, Skin is pink, warm \\T\\ dry. Musculoskeletal: Circulation, motion, and sensation intact. Range of motion: intact in all extremities. 10:00 Reassessment: Patient appears in no apparent distress at this time. Patient and/or ph family updated on plan of care and expected duration. Pain level reassessed. Patient is alert, oriented x 3, equal unlabored respirations, skin warm/dry/pink. 11:30 Reassessment: Patient appears in no apparent distress at this time. Patient and/or ph family updated on plan of care and expected duration. Pain level reassessed. Patient is alert, oriented x 3, equal unlabored respirations, skin warm/dry/pink. Pt resting quietly w/ eyes closed, respirations even and unlabored. Vital Signs: 07:13 BP 143 / 84; Pulse 54; Resp 18 S; Temp 97.9(TE); Pulse Ox 95% on R/A; Weight 122.47 kg jd3 (R); Height 6 ft. 1 in. (185.42 cm) (R); Pain 0/10; 09:31 BP 150 / 75; Pulse 45; Resp 18; Pulse Ox 95% on R/A; ph 10:31 BP 136 / 71; Pulse 50; Resp 18; Pulse Ox 97% on R/A; ph 11:20 BP 144 / 74; Pulse 44; Resp 18; Pulse Ox 99% on R/A; ph 12:06 BP 132 / 78; Pulse 51; Resp 18; Temp 97.6; Pulse Ox 97% on R/A; ph 07:13 Body Mass Index 35.62 (122.47 kg, 185.42 cm) jd3 ED Course: 06:41 Patient arrived in ED. es 07:13 Triage completed. jd3 07:14 Arm band placed on. jd3 07:59 Monica Spears, RN is Primary Nurse. ph 08:00 Patient has correct armband on for positive identification. Bed in low position. Call ph light in reach. Side rails up X 1. security monitor on. Pulse ox on. NIBP on. 08:02 William Jay MD is Attending Physician. kdr 08:36 XRAY Chest (1 view) In Process Unspecified. EDMS 08:45 Initial lab(s) drawn, by me, sent to lab. EKG done, by ED staff, reviewed by William Jay MD. Inserted saline lock: 20 gauge in left antecubital area, using aseptic technique. Blood collected. 12:07 No provider procedures requiring assistance completed. IV discontinued, intact, ph bleeding controlled, No redness/swelling at site. Pressure dressing applied. Administered Medications: 08:56 Drug: Lasix (furosemide) 40 mg Route: IVP; Site: left antecubital; ph 11:30 Follow up: Urine output 875 ml; Response: No adverse reaction ph Output: 11:30 Urine: 875ml; Total: 875ml. ph 12:06 Urine: 875ml (Voided); Total: 1750ml. ph Outcome: 11:41 Discharge ordered by . kdr 12:07 Discharged to home ambulatory. ph 12:07 Condition: good 12:07 Discharge instructions given to patient, Instructed on discharge instructions, follow up and referral plans. Demonstrated understanding of instructions, follow-up care. 12:07 Patient left the ED. ph Signatures: Dispatcher [employer] EDMS William Jay MD MD kdr Salyer, Edna es Hall, Patricia RN RN Fermín Brooks RN RN jd3
--- NOTE | 2020-09-16 11:43 | EDPHYS ---
Physician Documentation [facility] Name: Bladimir Michelle Age: 75 yrs Sex: Male : 1945 Arrival Date: 09/16/2020 Time: 06:41 Bed 25 Private MD: ED Physician William Jay HPI: 09/16 09:35 This 75 yrs old Male presents to ER via Ambulatory with complaints of kdr Breathing Difficulty. 09:35 The patient has shortness of breath at rest, with light activity. Onset: The kdr symptoms/episode began/occurred gradually, 1 week(s) ago. Duration: The symptoms are intermittent, with no pattern. The patient's shortness of breath is aggravated by nothing, is alleviated by nothing. Associated signs and symptoms: The patient has no apparent associated signs or symptoms. Severity of symptoms: At their worst the symptoms were mild in the emergency department the symptoms are unchanged. The patient has not experienced similar symptoms in the past. The patient has not recently seen a physician. The patient states that for the last few days, he has been intermittently SOB at rest and with mild exertion. Historical: - Allergies: 07:13 No Known Allergies; jd3 - Home Meds: 07:13 BP med [Active]; jd3 - PMHx: 07:13 Hypertension; jd3 - PSHx: 07:13 Hernia repair; jd3 - Immunization history:: Adult Immunizations up to date. - Social history:: Smoking status: Patient denies any tobacco usage or history of. ROS: 09:35 Constitutional: Negative for fever, chills, and weight loss, Eyes: Negative for injury, kdr pain, redness, and discharge, ENT: Negative for injury, pain, and discharge, Neck: Negative for injury, pain, and swelling, Cardiovascular: Negative for chest pain, palpitations, and edema, Abdomen/GI: Negative for abdominal pain, nausea, vomiting, diarrhea, and constipation, Back: Negative for injury and pain, : Negative for injury, bleeding, discharge, and swelling, MS/Extremity: Negative for injury and deformity, Skin: Negative for injury, rash, and discoloration, Neuro: Negative for headache, weakness, numbness, tingling, and seizure activity. Psych: Negative for depression, anxiety, suicide ideation, homicidal ideation, and hallucinations, Allergy/Immunology: Negative for hives, rash, and allergies, Endocrine: Negative for neck swelling, polydipsia, polyuria, polyphagia, and marked weight changes, Hematologic/Lymphatic: Negative for swollen nodes, abnormal bleeding, and unusual bruising. 09:35 Respiratory: Positive for dyspnea on exertion, shortness of breath, Negative for hemoptysis, orthopnea, sputum production, wheezing. Exam: 09:35 Constitutional: This is a well developed, well nourished patient who is awake, alert, kdr and in no acute distress. Head/Face: Normocephalic, atraumatic. Eyes: Pupils equal round and reactive to light, extra-ocular motions intact. Lids and lashes normal. Conjunctiva and sclera are non-icteric and not injected. Cornea within normal limits. Periorbital areas with no swelling, redness, or edema. Neck: Trachea midline, no thyromegaly or masses palpated, and no cervical lymphadenopathy. Supple, full range of motion without nuchal rigidity, or vertebral point tenderness. No Meningismus. Chest/axilla: Normal chest wall appearance and motion. Nontender with no deformity. No lesions are appreciated. Cardiovascular: Regular rate and rhythm with a normal S1 and S2. No gallops, murmurs, or rubs. Normal PMI, no JVD. No pulse deficits. Respiratory: Lungs have equal breath sounds bilaterally, clear to auscultation and percussion. No rales, rhonchi or wheezes noted. No increased work of breathing, no retractions or nasal flaring. Back: No spinal tenderness. No costovertebral tenderness. Full range of motion. Skin: Warm, dry with normal turgor. Normal color with no rashes, no lesions, and no evidence of cellulitis. 09:35 Cardiovascular: Edema: 4+ edema to level of left midcalf, left ankle, left foot, right midcalf, right ankle and right foot, pedal edema, that is moderate. 14:38 ECG was reviewed by the Attending Physician. kdr Vital Signs: 07:13 BP 143 / 84; Pulse 54; Resp 18 S; Temp 97.9(TE); Pulse Ox 95% on R/A; Weight 122.47 kg jd3 (R); Height 6 ft. 1 in. (185.42 cm) (R); Pain 0/10; 09:31 BP 150 / 75; Pulse 45; Resp 18; Pulse Ox 95% on R/A; ph 10:31 BP 136 / 71; Pulse 50; Resp 18; Pulse Ox 97% on R/A; ph 11:20 BP 144 / 74; Pulse 44; Resp 18; Pulse Ox 99% on R/A; ph 12:06 BP 132 / 78; Pulse 51; Resp 18; Temp 97.6; Pulse Ox 97% on R/A; ph 07:13 Body Mass Index 35.62 (122.47 kg, 185.42 cm) jd3 MDM: 09:35 Data reviewed: vital signs, nurses notes, lab test result(s), radiologic studies. kdr Counseling: I had a detailed discussion with the patient and/or guardian regarding: the historical points, exam findings, and any diagnostic results supporting the discharge/admit diagnosis, lab results, radiology results. 11:41 Patient medically screened. kdr 09/16 08:09 Order name: Basic Metabolic Panel kdr 09/16 08:09 Order name: CBC with Diff; Complete Time: 09:35 kdr 09/16 08:09 Order name: LFT's; Complete Time: 09:35 kdr 09/16 08:09 Order name: Magnesium; Complete Time: 09:35 kdr 09/16 08:09 Order name: NT PRO-BNP; Complete Time: 09:35 kdr 09/16 08:09 Order name: PT-INR; Complete Time: 09:35 kdr 09/16 08:09 Order name: Troponin (emerg Dept Use Only); Complete Time: 09:35 kdr 09/16 08:09 Order name: XRAY Chest (1 view); Complete Time: 11:40 kdr 09/16 08:09 Order name: EKG; Complete Time: 08:10 kdr 09/16 08:09 Order name: Cardiac monitoring; Complete Time: 09:30 kdr 09/16 08:09 Order name: EKG - Nurse/Tech; Complete Time: 09:30 kdr 09/16 08:09 Order name: IV Saline Lock; Complete Time: 09:30 kdr 09/16 08:10 Order name: Basic Metabolic Panel; Complete Time: 09:35 EDMS 09/16 08:09 Order name: Labs collected and sent; Complete Time: 09:30 kdr 09/16 08:09 Order name: O2 Per Protocol; Complete Time: 09:30 kdr 09/16 08:09 Order name: O2 Sat Monitoring; Complete Time: kdr EC:38 Rate is 46 beats/min. Rhythm is regular, Sinus bradycardia with Right bundle branch kdr block. QRS [place] is Normal. TN interval is normal. QRS interval is normal. QT interval is normal. No Q waves. Clinical impression: NSR w/ Non-specific ST/T Changes and Sinus bradycardia. Administered Medications: 08:56 Drug: Lasix (furosemide) 40 mg Route: IVP; Site: left antecubital; ph 11:30 Follow up: Urine output 875 ml; Response: No adverse reaction ph Disposition: 09/16/20 11:41 Discharged to Home. Impression: Shortness of breath. - Condition is Stable. - Discharge Instructions: Shortness of Breath, [id number]. - Medication Reconciliation Form, Thank You Letter, Work release form form. - Follow up: Private Physician; When: 2 - 3 days; Reason: If symptoms return, Further diagnostic work-up, Recheck today's complaints, Continuance of care, Re-evaluation by your physician. - Problem is new. - Symptoms have improved. Signatures: Dispatcher [employer] EDMS William Jay MD MD kdr Monica Spears RN RN ph Fermín Anthony RN RN jd3 Corrections: (The following items were deleted from the chart) 12:07 11:41 09/16/2020 11:41 Discharged to Home. Impression: Shortness of breath. Condition ph is Stable. Forms are Medication Reconciliation Form, Thank You Letter, Antibiotic Education, Prescription Opioid Use. Follow up: Private Physician; When: 2 - 3 days; Reason: If symptoms return, Further diagnostic work-up, Recheck today's complaints, Continuance of care, Re-evaluation by your physician. Problem is new. Symptoms have improved. kdr
[2020-09-16 12:31] VITALS: BP 132/78; TEMP 97.6; O2SAT 97
== END 2020-09-16 12:07 | disposition home or self-care (01) ==
LOC: ER 06:38
DX: R06.02 Shortness of breath (principal); I10 Essential (primary) hypertension
CPT/HCPCS: 93005; 85025; 80048; 36415; 83735; 85610; 80076; 84484; 83880; 71045; 96374; 99284; J1940

== ENCOUNTER 2021-04-24 08:28 | Day surgery (SDC) | payer OTHER ==
[2021-04-24 08:56] LABS: Hematocrit 43.5 % (39.6-49.0); Lymphocytes % 19.9 % (15.3-44.8); MPV 7.9 fL (7.6-11.3); RBC Red Blood Cell Count 4.92 M/uL (4.33-5.43)
[2021-04-24 09:08] LABS: BUN Blood Urea Nitrogen 7 mg/dL (7-18); Bicarbonate 29 mmol/L (21-32); Glucose Level 115 mg/dL (74-106); Potassium 3.8 mmol/L (3.5-5.1); Sodium Level 139 mmol/L (136-145)
[2021-04-24] MEDS ORDERED: Ringers Lactate 1,000 ML IV ONE (09:28)
[2021-04-24] MEDS ORDERED: CEFAZOLIN/NS 1gm 1 GM/50 ML BAG ONE (09:41)
--- NOTE | 2021-04-24 09:42 | RAD REPORT ---
EXAM DESCRIPTION: Odilon Baig And Lat (2 Views)04/24/2021 9:11 am CLINICAL HISTORY: Preop, hypertension COMPARISON: August 2020 FINDINGS: The lungs appear clear of acute infiltrate. The heart is borderline enlarged. Aorta is to rtuous/ectatic IMPRESSION: No acute abnormalities displayed
[2021-04-24] MEDS ORDERED: FENTANYL CITR 100 MCG/2 ML ONE ×2 (09:45→10:53)
[2021-04-24] MEDS ORDERED: propofoL 200 MG/20 ML VIAL IV ONE ×2 (09:45→10:53)
[2021-04-24] MEDS ORDERED: MIDAZOLAM HCL 2 MG/2 ML INJ ONE ×2 (09:45→10:54)
[2021-04-24] MEDS ORDERED: LIDOCAINE 1% MPF 5 ML VIAL ONE (09:46)
[2021-04-24] MEDS ORDERED: LIDOCAINE 2% MPF 5 ML VIAL ONE (10:54)
[2021-04-24] MEDS ORDERED: ONDANSETRON 4 MG/2 ML VIAL ONE (10:54)
[2021-04-24] MEDS ORDERED: LIDOCAINE 1% W/EPI 1:100,000 MDV 20 ML VIAL ONE (10:56)
[2021-04-24] MEDS ORDERED: BUPIVACAINE 0.5% PF 10 ML VIAL ONE (10:56)
[2021-04-24] MEDS ORDERED: EPHEDRINE SULF 50 MG/ML VIAL ONE (11:16)
[2021-04-24] MEDS ORDERED: GLYCOPYRROLATE 0.2 MG/ML SYR ONE (11:16)
[2021-04-24] MEDS ORDERED: BSS OPTHALMIC SOL 15 ML OPTH ONE (11:21)
[2021-04-24] MEDS ORDERED: Mastisol Adhesive Liq ONE (11:47)
[2021-04-24 12:33] VITALS: O2SAT 96
[2021-04-24 13:54] VITALS: BP 135/74; TEMP 97.9
--- NOTE | 2021-04-24 14:08 | OP ---
Date of Procedure: 04/24/2021 Surgeon: Escobar Espinoza MD Savings Teller: None. Preoperative Diagnosis: Left forehead mass. Postoperative Diagnosis: Left forehead mass. Procedure: Wide excision, left forehead mass 5 x 2 cm with layered closure. Estimated Blood Loss: Minimal. Specimen: Left forehead mass. Findings: As above. Anesthesia: General. Complications: None. The patient tolerated procedure in stable condition and taken to Recovery in g ood general condition. Procedure In Detail: The patient was brought to the OR and placed in supine position. General anest hesia begun. The patient was prepped and draped in usual sterile fashion. Lidocaine 1% with epineph rine locally injected. A 15 blade was used to make a 5 x 2 cm incision over the previous incision th at had been made, subcutaneous tissue divided and the mass freed from the subcutaneous tissue with di ssection superiorly and inferiorly and laterally down to the bone. excised wound, irrigat ed, bleeding controlled with cautery. Flaps created. The mass labeled appropriately, sent to pathyasir pan and then 2-0 chromic used to approximate the subcutaneous tissue and 5-0 nylon used to close the skin. Sterile dressing applied. The patient was awakened and taken to Recovery in good general cond ition. Discharge Note: The patient will go to Day Surgery and home when stable. Disposition: Home. Condition: Stable. Discharge Instructions: Resume home medications and diet. Activity as tolerated. No heavy lifting. Remove outer dressing in 2 days. Shower. Keep wound clean and dry. Follow up in my office in 10 days. Call for appointment. Tylenol No. 3 one tablet p.o. q.4 p.r.n. pain, Keflex 500 mg p.o. q.6. /MODL Voice ID: [id number] Report ID: [id number]
--- NOTE | 2021-04-26 07:54 | EKG ---
Test Date: 2021-04-24 Test Time: 08:58:19 Television Parts Tester: JESUS MANUEL MEASUREMENT RESULTS: Intervals: Rate: 52 MN: 188 QRSD: 108 QT: 438 QTc: 407 [place]: P: -19 MN: 188 QRS: -46 T: 30 INTERPRETIVE STATEMENTS: Sinus bradycardia with premature atrial complexes Left anterior fascicular block Minimal voltage criteria for LVH, may be normal variant Septal infarct, age undetermined Abnormal ECG Compared to ECG 04/24/2021 08:53:53 Atrial premature complex(es) now present Myocardial infarct finding still present Electronically Signed On 04-26-21 07:46:23 TRUCK SHOP SUPERVISOR by Live Alcaraz
== END 2021-04-24 13:35 | disposition home or self-care (01) ==
LOC: OR 08:28
PROVIDERS: ATTEND Surgery
PROC: 0JB10ZZ Excision of Face Subcutaneous Tissue and Fascia, Open Approach (ICD-10-PCS; principal; 2021-04-24 10:30)
DX: R22.0 Localized swelling, mass and lump, head (principal); Z20.822 Contact with and (suspected) exposure to COVID-19
CPT/HCPCS: 93005 ×2; 85025; 80048; 36415; 88304; 71046; 11446; U0003; J2704; J2250; J3010; J0690; J7120; J2405; 88305

== ENCOUNTER 2021-08-30 11:36 | Emergency (ER) | payer OTHER ==
--- OUTSIDE RECORDS SUMMARY | 2021-08-30 11:39 | XMS REPORT | Continuity of Care Document ---
:1945 Author Organization [facility] t Address [address] [place] [address] Care Team Providers Name Role Phone Yanick Attending Clinician Unavailable Lyndsay Mosley Attending Clinician Unavailable Problems This patient has no known problems. Allergies, Adverse Reactions, Alerts This patient has no known allergies or adverse reactions. Medications Ordered Filled Start Stop Current Ordering Indication Dosage Frequency Signature Comments Components Source Medication Medication Date Date Medication? Clinician (SIG) Name Name Metoprolol Metoprolol Yes Na Mosley 1 tablet Common Tartrate Tartrate with food Sp tre [facility] Losartan Losartan Yes Na Mosley take one Common Potassium-H Potassium-H tablet by [facility] CTZ mouth once - [facility] daily [facility] Flonase Flonase Yes Na Mosley 2 spray in Common each [facility] nostril [facility] Debrox Debrox Yes Na Mosley 5 drops Commo n into Spirit affected - [facility] ear [facility] Zyrtec Zyrtec Yes Na Mosley 1 tablet Comm on Allergy Allergy [facility] Amlodipine Amlodipine Yes Na Mosley 1 tablet Common Besylate Besylate [facility] Losartan Losartan Yes Na Mosley TAKE 1 Co mmon Potassium-H Potassium-H TABLET BY [facility] MOUTH ONCE - [facility] DAILY IN [facility] Procedures This patient has no known procedures. Encounters Start End Encounter Admission Attending Care Care Encounter Source Date/Time Date/Time Type Type Clinicians Facility Department ID 2021-08-02 Outpatient [place]don, STLMLC STLMLC [id number] Common 09:44:00 Al[facility] 2021-06-28 Outpatient [place], STLMLC STLMLC [id number] Common 15:26:01 Ally [facility] 2021-06-12 Outpatient [place]don, STLMLC STLMLC [id number] Common 15:23:00 [facility] 2021-05-10 Outpatient Mosley, Na STLMLC STLMLC [id number] Common 14:28:47 [id number] [facility] 2021-05-10 Outpatient Mosley, Na STLMLC STLMLC [id number] Common 14:25:30 [id number] [facility] 2021-05-10 Outpatient Mosley, Na STLMLC STLMLC [id number] Common 11:51:05 [id number] [facility] 2021-05-10 Outpatient Mosley, Na STLMLC STLMLC [id number] Common 11:49:59 [id number] [facility] 2021-05-10 Outpatient Mosley, Na STLMLC STLMLC [id number] Common 11:16:29 [id number] [facility] 2021-06-28 2021-06-28 ambulatory STLMLC STLMLC [id number] Common 00:00:00 00:00:00 [facility] 2021-04-12 2021-04-12 ambulatory STLMLC STLMLC [id number] Common 00:00:00 00:00:00 [facility] 2021-03-28 2021-03-28 ambulatory STLMLC STLMLC [id number] Common 00:00:00 00:00:00 [facility] 2020-01-14 2020-01-14 Outpatient STLMLC STLMLC [id number] Common 00:00:00 00:00:00 [facility] 2020-01-12 2020-01-12 Outpatient STLMLC STLMLC [id number] Common 00:00:00 00:00:00 [facility] 2020-01-01 2020-01-01 [facility] [id number] Common 13:20:00 13:20:[address] [facility] 2019-10-01 2019-10-01 [facility] [id number] Common 22:43:00 22:43:[address] [facility] 2019-07-16 2019-07-16 [facility] [id number] Common 08:56:00 08:56:[address] [facility] 2019-01-06 2019-01-06 [facility] [id number] Common 14:00:00 14:00:[address] [facility] 2018-12-24 2018-12-24 [facility] [id number] Common 12:56:00 12:56:[address] [facility] 2017-12-03 2017-12-03 [facility] [id number] Common 09:00:00 09:00:[address] [facility] 2017-09-03 2017-09-03 [facility] [id number] Common 11:15:00 11:15:[address] [facility] Results This patient has no known results.
[2021-08-30 13:02] LABS: Albumin 3.4 g/dL (3.4-5.0); Bilirubin Total 0.4 mg/dL (0.2-1.0); Potassium 4.4 mmol/L (3.5-5.1)
[2021-08-30 13:03] LABS: Absolute Lymphocytes (CBC) 1.2 K/uL (0.7-4.9); Hematocrit 46.3 % (39.6-49.0); Lymphocytes % 13.9 % (15.3-44.8); MPV 8.3 fL (7.6-11.3); RBC Red Blood Cell Count 5.38 M/uL (4.33-5.43)
--- NOTE | 2021-08-30 13:49 | RAD REPORT ---
EXAM DESCRIPTION: RAD - Chest Single View - 08/30/2021 1:29 pm CLINICAL HISTORY: shortness of breath COMPARISON: Chest Pa And Lat (2 Views) dated 04/24/2021; Chest Single View dated 09/16/2020; Chest Sing le View dated 01/06/2019; CHEST SINGLE VIEW dated 08/17/2014 FINDINGS: Lines: None. Lungs: Mild basilar opacities which are new from prior. Lung volumes are decreased. Pleural: No significant pleural effusions or pneumothorax. Cardiac: Similar size and configuration Bones: No acute fractures. Other: IMPRESSION: Likely mild basilar atelectasis but otherwise no acute findings identified.
[2021-08-30 16:01] LABS: Urine Blood Negative (Negative); Urine Glucose Negative (Negative); Urine Protein Trace (Negative); Urine Specific Gravity 1.025 (1.005-1.030)
--- NOTE | 2021-08-30 17:31 | RAD REPORT ---
EXAM DESCRIPTION: CTAbdomen Pelvis W Contrast - 08/30/2021 5:21 pm CLINICAL HISTORY: Abdominal pain, acute, nonlocalized COMPARISON: Chest For Pe Angio dated 08/30/2021 TECHNIQUE: CT of the abdomen and pelvis was performed. All CT scans are performed using dose optimization technique as appropriate and may include automated exposure control or mA/KV adjustment according to patient size. FINDINGS: Lower chest: Circumferentially thickened distal esophagus suggesting esophagitis. Liver: Low-density lesion along segment 8 in 4 of the liver has benign imaging features. There is a s econd lesion in the right hepatic lobe which also has benign imaging features. Biliary: No biliary ductal dilatation. Stomach: No significant focal abnormality. Duodenum: No significant focal abnormality. Pancreas: No significant abnormality. Spleen: No significant abnormality. Adrenal: No suspicious lesions. Kidney/ureter: No hydronephrosis. Punctate stone left kidney. Left renal sinus cysts. Too small to ch aracterize and/or benign appearing renal lesions are noted. Retroperitoneum: No retroperitoneal adenopathy. Vascular: No aneurysm. Atherosclerosis Bowel: Scattered air-fluid levels in the colon. No appendicitis.. Peritoneum: Small fat containing left inguinal hernia. Bladder: Bladder wall thickening which may be secondary to incomplete distention. Reproductive: No adnexal masses. Bones: No acute fracture. Multilevel degenerative changes are present in the spine. Other: n/a IMPRESSION: No acute intra-abdominal or pelvic finding. Scattered air-fluid levels in the colon coul d reflect diarrheal disease. No bowel obstruction.
--- NOTE | 2021-08-30 17:41 | RAD REPORT ---
EXAM DESCRIPTION: CT - Chest For Pe Angio - 08/30/2021 5:21 pm CLINICAL HISTORY: shortness of breath COMPARISON: Abdomen Pelvis W Contrast dated 08/30/2021; ECHOCARDIOGRAM dated 08/24/2011 FINDINGS: Chest Wall: No suspicious thyroid nodules or pathologic lymphadenopathy. Lungs: No acute abnormality. Subpleural nodule in left hemidiaphragm measuring 6 millimeters is likel y benign. This probably represents a subpleural lymph node. No suspicious pulmonary nodules are ident ified. Pleura: No significant effusions or pneumothorax. Mediastinum/luciano: No pathologic lymphadenopathy. Pulmonary arteries/Aorta: Suboptimal contrast opacification the pulmonary arteries limits evaluation of the subsegmental pulmonary arteries. No filling defect identified. 5 cm ascending thoracic aortic aneurysm. This involves the ascending thoracic aorta beyond the sino-tubular junction. Heart: No significant pericardial effusion. Normal heart size. Aortic valve calcifications. Upper abdomen: No acute abnormality. Bones: No acute abnormality. Multilevel degenerative changes are present in the spine. All CT scans are performed using dose optimization technique as appropriate and may include automated exposure control or mA/KV adjustment according to patient size. IMPRESSION: Negative for pulmonary embolism. No other acute findings within the chest. Ascending thoracic aortic aneurysm measuring 5 cm. Recommend outpatient referral to thoracic surgery.
--- NOTE | 2021-08-30 18:22 | ER ---
Nurse's Notes [facility] Name: Bladimir Michelle Age: 76 yrs Sex: Male : 1945 Arrival Date: 08/30/2021 Time: 11:39 Bed 23 Private MD: Nettie Mosley Diagnosis: Thoracic aortic aneurysm, without rupture;Nausea;Other malaise and fatigue Presentation: 08/30 12:01 Chief complaint: Patient states: he started feeling short of breath and feels like his ap3 stomach is large and firm. Patient also reports nausea. Patient states he began feeling this way yesterday and the symptoms have not improved. Coronavirus screen: Client presents with at least one sign or symptom that may indicate coronavirus-19. Ebola Screen: No symptoms or risks identified at this time. Initial Sepsis Screen: Does the patient meet any 2 criteria? No. Patient's initial sepsis screen is negative. Does the patient have a suspected source of infection? No. Patient's initial sepsis screen is negative. Risk Assessment: Do you want to hurt yourself or someone else? Patient reports no desire to harm self or others. Onset of symptoms was August 29, 2021. 12:01 Method Of Arrival: Ambulatory ap3 12:01 Acuity: MENDOZA 3 ap3 Triage Assessment: 12:03 General: Appears in no apparent distress. uncomfortable, Behavior is calm, cooperative, ap3 appropriate for age. Pain: Complains of pain in chest and abdomen. Neuro: Level of Consciousness is awake, alert, obeys commands, Oriented to person, place, time, situation, Moves all extremities. Gait is steady, Speech is normal. Cardiovascular: Patient's skin is warm and dry. Respiratory: Airway is patent Respiratory effort is even, unlabored. GI: Reports lower abdominal pain, upper abdominal pain, nausea. Historical: - Allergies: 12:02 No Known Allergies; ap3 - Home Meds: 12:02 BP med [Active]; ap3 - PMHx: 12:02 Hypertension; ap3 - Immunization history:: Client reports receiving the 2nd dose of the Covid vaccine. - Social history:: Smoking status: Patient denies any tobacco usage or history of. Screenin:04 Abuse screen: Denies threats or abuse. Nutritional screening: No deficits noted. ap3 Tuberculosis screening: No symptoms or risk factors identified. Fall Risk None identified. Assessment: 16:33 General: Appears in no apparent distress. comfortable, Behavior is calm, cooperative, ld1 appropriate for age. Pain: Denies pain. Neuro: Level of Consciousness is awake, alert, obeys commands, Oriented to person, place, time, situation. Cardiovascular: Capillary refill < 3 seconds Patient's skin is warm and dry. Rhythm is regular. Respiratory: Airway is patent Respiratory effort is even, unlabored. GI: Abdomen is round non-distended. GI: Reports nausea, vomiting. : No signs and/or symptoms were reported regarding the genitourinary system. EENT: No signs and/or symptoms were reported regarding the EENT system. Derm: No signs and/or symptoms reported regarding the dermatologic system. Musculoskeletal: No signs and/or symptoms reported regarding the musculoskeletal system. 18:42 Reassessment: Patient appears in no apparent distress at this time. Patient and/or ld1 family updated on plan of care and expected duration. Pain level reassessed. Patient is alert, oriented x 3, equal unlabored respirations, skin warm/dry/pink. Vital Signs: 12:01 BP 151 / 77; Pulse 54; Temp 97.7; Pulse Ox 96% ; Weight 127.01 kg; Height 6 ft. 1 in. ap3 (185.42 cm); 16:33 BP 160 / 71; Pulse 52; Resp 18; Pulse Ox 97% on R/A; Pain 0/10; ld1 18:23 BP 156 / 69; Pulse 49; Resp 18; Pulse Ox 96% on R/A; ld1 18:42 BP 152 / 76; Pulse 86; Resp 18; Pulse Ox 100% on R/A; ld1 12:01 Body Mass Index 36.94 (127.01 kg, 185.42 cm) ap3 ED Course: 11:39 Patient arrived in ED. am2 11:40 Nettie Mosley MD is Private Physician. am2 12:02 Triage completed. ap3 12:04 Arm band placed on left wrist. ap3 12:40 Lipase Sent. mh5 12:40 CBC with Diff Sent. mh5 12:41 CMP Sent. mh5 12:41 Initial lab(s) drawn, by vt, sent to lab. Inserted saline lock: 22 gauge in right 5 antecubital area, using aseptic technique. Blood collected. 12:45 Dru Celeste PA is PHCP. [facility] 12:45 Tanvir Galeana DO is Attending Physician. m 13:31 Chest Single View XRAY In Process Unspecified. EDMS 15:40 Neela Cline, RN is Primary Nurse. ld1 15:42 Troponin High Sensitivity Sent. 16:02 Urine collected: clean catch specimen, clear. jw7 16:34 Patient has correct armband on for positive identification. Placed in gown. Bed in low ld1 position. Call light in reach. Side rails up X2. flotation tender on. Pulse ox on. NIBP on. Door closed. Noise minimized. Warm blanket given. 16:34 No provider procedures requiring assistance completed. ld1 17:22 Chest For Pe Angio In Process Unspecified. EDMS 17:22 CT Abd/Pelvis - IV Contrast Only In Process Unspecified. EDMS 18:21 Nettie Mosley MD is Referral Physician. jmm 18:42 IV discontinued, intact, bleeding controlled, No redness/swelling at site. ld1 Administered Medications: No medications were administered Medication: 12:04 VIS not applicable for this client. ap3 Outcome: 18:22 Discharge ordered by MD. jmm 18:42 Discharged to home ambulatory. ld1 18:42 Condition: stable 18:42 Discharge instructions given to patient, Instructed on discharge instructions, follow up and referral plans. Demonstrated understanding of instructions, follow-up care. 18:43 Patient left the ED. ld1 Signatures: Dispatcher [employer] EDCO Dru Celeste PA PA Ashia Santos 5 Dona Ayala am2 Dona Shahid RN RN ap3 Neela Cline, CARL RN ld1 Adri Ashraf Zaina zm Corrections: (The following items were deleted from the chart) 12:04 12:01 Chief complaint: Patient states: he started feeling short of breath and feels ap3 like his stomach is large and firm. Patient states he began feeling this way yesterday and the symptoms have not improved. ap3
--- NOTE | 2021-08-30 18:22 | EDPHYS ---
Physician Documentation [facility] Name: Bladimir Michelle Age: 76 yrs Sex: Male : 1945 Arrival Date: 08/30/2021 Time: 11:39 Bed 23 Private MD: Nettie Mosley ED Physician Tanvir Galeana HPI: 08/30 12:11 Patient complains of abdominal distention. Fatigue and nausea. Began last night. . jmm 12:11 Onset: The symptoms/episode began/occurred gradually, 1 day(s) ago. jmm 12:11 A 6-year-old male with history of hypertension the presents emerged department with jmm complaints of abdominal distention and "firmness" beginning last night along with shortness of breath. Denies chest pain. Denies diarrhea but states that he has some nausea.. Historical: - Allergies: 12:02 No Known Allergies; ap3 - Home Meds: 12:02 BP med [Active]; ap3 - PMHx: 12:02 Hypertension; ap3 - Immunization history:: Client reports receiving the 2nd dose of the Covid vaccine. - Social history:: Smoking status: Patient denies any tobacco usage or history of. ROS: 12:11 Constitutional: Negative for fever, chills, and weight loss, Cardiovascular: Negative jmm for chest pain, palpitations, and edema. 12:11 Respiratory: Positive for shortness of breath. 12:11 Abdomen/GI: 12:11 Abdomen/GI: Positive for nausea, abdominal distension. 12:11 All other systems are negative. Exam: 12:11 Constitutional: This is a well developed, well nourished patient who is awake, alert, jmm and in no acute distress. Head/Face: atraumatic. Eyes: EOMI, no conjunctival erythema appreciated ENT: Moist Mucus Membranes Neck: Trachea midline, Supple Chest/axilla: Normal chest wall appearance and motion. Cardiovascular: Regular rate and rhythm. No edema appreciated Respiratory: Normal respirations, no respiratory distress appreciated Abdomen/GI: Non distended, soft Back: Normal ROM Skin: General appearance color normal MS/ Extremity: Moves all extremities, no obvious deformities appreciated, no edema noted to the lower extremities Neuro: Awake and alert Psych: Behavior is normal, Mood is normal, Patient is cooperative and pleasant Vital Signs: 12:01 BP 151 / 77; Pulse 54; Temp 97.7; Pulse Ox 96% ; Weight 127.01 kg; Height 6 ft. 1 in. ap3 (185.42 cm); 16:33 BP 160 / 71; Pulse 52; Resp 18; Pulse Ox 97% on R/A; Pain 0/10; ld1 18:23 BP 156 / 69; Pulse 49; Resp 18; Pulse Ox 96% on R/A; ld1 18:42 BP 152 / 76; Pulse 86; Resp 18; Pulse Ox 100% on R/A; ld1 12:01 Body Mass Index 36.94 (127.01 kg, 185.42 cm) ap3 MDM: 12:11 Patient medically screened. [facility] 18:21 Data reviewed: vital signs, nurses notes. Counseling: I had a detailed discussion with raven the patient and/or guardian regarding: the historical points, exam findings, and any diagnostic results supporting the discharge/admit diagnosis, lab results, radiology results, the need for outpatient follow up, to return to the emergency department if symptoms worsen or persist or if there are any questions or concerns that arise at home. ED course: Patient states that he feels much better. I discussed the CT findings with the patient along with the need to follow-up with vascular or thoracic surgery for further evaluation of his aneurysm. Patient otherwise given strict return precautions. Patient understood agrees plan of care.. 08/30 12:11 Order name: CBC with Diff; Complete Time: 13:11 [facility] 08/30 12:11 Order name: CMP; Complete Time: 13:11 [facility] 08/30 12:11 Order name: Lipase; Complete Time: 13:11 [facility] 08/30 13:11 Order name: Chest Single View XRAY; Complete Time: 14:02 [facility] 08/30 13:11 Order name: Troponin High Sensitivity; Complete Time: 16:05 [facility] 08/30 16:02 Order name: Urine Dipstick-Ancillary; Complete Time: 16:05 [facility] 08/30 12:11 Order name: IV Saline Lock; Complete Time: 12:40 [facility] 08/30 12:11 Order name: Labs collected and sent; Complete Time: 12:40 [facility] 08/30 12:11 Order name: Urine Dipstick-Ancillary (obtain specimen); Complete Time: 16:03 [facility] 08/30 13:12 Order name: EKG - Nurse/Tech; Complete Time: 15:41 [facility] 08/30 16:07 Order name: Chest For PE Angio CT [facility] 08/30 16:07 Order name: CT Abd/Pelvis - IV Contrast Only; Complete Time: 17:36 [facility] 08/30 16:11 Order name: Chest For Pe Angio; Complete Time: 17:50 EDMS Administered Medications: No medications were administered Disposition: 22:02 Co-signature as Attending Physician, Tanvir Galeana DO I was immediately available on-site ms3 in the Emergency Department for consultation in the care of the patient. . Disposition Summary: 08/30/21 18:22 Discharge Ordered Location: Home jm Condition: Stable jmm Diagnosis - Thoracic aortic aneurysm, without rupture jmm - Nausea jmm - Other malaise and fatigue jmm Followup: jmm - With: Nettie Mosley MD - When: 1 - 2 days - Reason: Recheck today's complaints, Continuance of care, Re-evaluation by your physician Discharge Instructions: - Discharge Summary Sheet jmm - Thoracic Aortic Aneurysm jmm - Fatigue jm Forms: - Medication Reconciliation Form [facility] - Thank You Letter jmm - Antibiotic Education jmm - Prescription Opioid Use jm Signatures: Dispatcher [employer] EDMS Dru Celeste PA PA jmm Prokisch, Amanda, RN RN ap3 Tanvir Galeana DO DO ms3
[2021-08-30 18:49] VITALS: TEMP 97.7
[2021-08-30 18:54] VITALS: BP 152/76; O2SAT 100
--- NOTE | 2021-08-31 07:39 | EKG ---
Test Date: 2021-08-30 Test Time: 12:03:54 Cloth Bin Packer: [facility] MEASUREMENT RESULTS: Intervals: Rate: 57 NJ: 186 QRSD: 98 QT: 428 QTc: 416 [place]: P: 78 NJ: 186 QRS: -45 T: 54 INTERPRETIVE STATEMENTS: Sinus bradycardia Incomplete right bundle branch block Left anterior fascicular block Voltage criteria for left ventricular hypertrophy Cannot rule out Septal infarct, age undetermined Abnormal ECG Compared to ECG 04/24/2021 08:58:19 Incomplete right bundle-branch block now present Atrial premature complex(es) no longer present Myocardial infarct finding still present Electronically Signed On 08-31-21 07:37:09 CDT by Live Alcaraz
== END 2021-08-30 18:43 | disposition home or self-care (01) ==
LOC: ER 11:36
DX: I71.2 Thoracic aortic aneurysm, without rupture (principal); R11.0 Nausea; R53.81 Other malaise; R53.83 Other fatigue; I10 Essential (primary) hypertension
CPT/HCPCS: 93005; 85025; 36415; 81003; 84484; 83690; 80053; 71275; 74177; 71045; 99284; Q9967